=== PATIENT | female | born 1990 | race Caucasian/White ===

== ENCOUNTER → 2023-06-10 18:12 | Outpatient (CLI) | payer OTHER, SELFPAY ==
--- NOTE | 2023-06-10 | DI.RAD_ITS ---
Exam(s) XR CHEST 2V PA LATERAL EXAM: XR CHEST 2V PA LATERAL CLINICAL HISTORY: COUGH, R05.9,SOB,?INFILTRATE OR LESION. TECHNIQUE: 2D digital imaging was performed. COMPARISON: No exams were available for comparison FINDINGS: 2 views: Pectus excavatum noted. Heart size is normal. The mediastinum is not widened. Lungs are clear. No infiltrates nor pleural effusions. IMPRESSION: No acute pulmonary findings. DATA REPOSITORY: RADIATION DOSE DELIVERED:
== END ==
PROVIDERS: Visit Provider Physician Assistant
DX: R05.9 Cough, unspecified (principal); R06.02 Shortness of breath
CPT/HCPCS: 71046

== ENCOUNTER 2023-06-12 08:28 | Emergency (ER) | payer OTHER, SELFPAY ==
[2023-06-12 08:34] VITALS: BP 152/98; PULSE 91; RESP 16; TEMP 37.1; O2SAT 98
[2023-06-12 09:05] VITALS: BP 141/84; PULSE 76; RESP 16; O2SAT 98
[2023-06-12] MEDS: Ketorolac 10 MG TAB PO (09:18)
[2023-06-12] MEDS: Methocarbamol 500 MG TAB PO (09:18)
[2023-06-12] MEDS: Penicillin V POTASSIUM 500 MG TAB PO (09:18)
--- NOTE | 2023-06-12 09:59 | ED.GENADUL_ITS ---
Discharge Plan Disposition Patient Disposition: Home Discharge Details Clinical Impression: Muscle spasms of neck, URI (upper respiratory infection), Pain in tooth Primary Care Provider: Unknown,Unknown ED Provider: Kristy Gee Home Meds and New Rx's Prescriptions: New penicillin V potassium 500 mg tablet 500 mg PO BID 7 Days Qty: 14 0RF methocarbamol 500 mg tablet 1,000 mg PO TID PRN (Reason: spasm) Qty: 14 0RF Discharge Instructions Instructions: Muscle Spasm (ED) Additional Instructions: take medications as prescribed. can also take motrin for pain relief heat pack to area may be helpful, can also massage area please follow up with a dentist for your tooth HPI General Date/Time Provider Initiated Documentation: 06/12/23 09:05 . Limitations to Documentation: no limitations . Information obtained by: patient . HPI Narrative: 32-year-old female without significant past medical history presents for evaluation of 2 weeks of neck pain. Reports that symptoms have been associated with left ear pain, URI symptoms of nasal congestion, cough and sore throat as well as a dental infection. She is not currently on any antibiotics. The patient reports that over the last 3 days the pain in her neck has significantly worsened. Is not associated with neck stiffness or voice changes. She has no difficulty or pain with swallowing. Related Data Home Medications Medication Instructions Recorded Confirmed methocarbamol 500 mg tablet 1,000 mg (2 x 500 mg) PO TID PRN 06/12/23 spasm #14 tabs penicillin V potassium 500 mg 500 mg PO BID 7 days #14 tabs 06/12/23 tablet Previous Rx's Medication Instructions Recorded methocarbamol 500 mg tablet 1,000 mg (2 x 500 mg) PO TID PRN 06/12/23 spasm #14 tabs penicillin V potassium 500 mg 500 mg PO BID 7 days #14 tabs 06/12/23 tablet Allergies Allergy/AdvReac Type Severity Reaction Status Date / Time NKA AdvReac Unknown Other (See Uncoded 06/12/23 09:13 Comment) General Stated Complaint: Headache CYRIL: 3 Exam Narrative Exam Narrative: Review of Systems: All systems reviewed & are unremarkable except as noted in HPI and below Well-developed, no acute distress NCAT PERRL, normal conjunctiva Bilateral TMs without erythema, bulging or significant effusion. no mastoid tenderness Upper left posterior molar with fracture and evidence of decay No significant cervical adenopathy, left neck with trapezius spasm noted RRR Unlabored respiratory effort Nondistended abdomen Extremities w/o deformity, no cyanosis, no edema No rashes or lesions. no focal neurologic deficits Appropriate mood and affect Course Vital Signs Vital signs: Vital Signs Temperature 37.1 C 06/12/23 08:34 Pulse 91 H 06/12/23 08:34 Respiratory Rate 16 06/12/23 08:34 Blood Pressure 152/98 H 06/12/23 08:34 Pulse Oximetry 98 06/12/23 08:34 Temperature 37.1 C 06/12/23 08:34 Pulse 76 06/12/23 09:05 Respiratory Rate 16 06/12/23 09:05 Blood Pressure 141/84 H 06/12/23 09:05 Blood Pressure Position Sitting 06/12/23 08:34 Pulse Oximetry 98 06/12/23 09:05 Oxygen Delivery Method Room Air 06/12/23 09:05 Oxygen Flow Rate 0 06/12/23 09:05 Medical Decision Making Emergent evaluation of left-sided neck pain. Initial differential includes muscle spasm, mastoiditis, URI. Patient has no evidence of otitis media, externa or mastoiditis. She does have a small dental infection. She has an obvious muscle spasm on examination. Will treat the dental infection with antibiotics. Recommend NSAIDs and Robaxin for her muscle spasm. No evidence of RPA or [employer] or other concerns for deep space infectious etiology. Advised to follow-up with primary and dentist Quality:SDOH Health Related Social Needs: No Data to Display PFSH All Active Problems Pain in tooth (Acute) URI (upper respiratory infection) (Acute) Muscle spasms of neck (Acute) Social History Smoking/Tobacco Use Status: Current every day Tobacco Type: e-cigarettes Smoking risk assessment performed?: Yes Alcohol Intake: current Alcohol Intake frequency: 0-2 drinks per day Alcohol type: wine Drug use: Never Substance use type: does not use Housing: house Do you feel safe at home: Yes Do you feel safe in your relationship?: Yes
== END 2023-06-12 09:23 | disposition home or self-care (01) ==
LOC: ER 09:22
PROVIDERS: Emergency Provider Emergency Medicine
DX: M54.2 Cervicalgia (principal); R68.84 Jaw pain; K08.89 Other specified disorders of teeth and supporting structures; J06.9 Acute upper respiratory infection, unspecified; M62.838 Other muscle spasm
CPT/HCPCS: 99283